=== PATIENT | male | born 1990 | race Caucasian/White ===

== ENCOUNTER 2018-01-07 11:19 | Emergency (ER) | payer OTHER, BC ==
[~2018-01-07] VITALS: Ht 190.5 cm; Wt 90.7 kg
--- NOTE | 2018-01-08 16:33 | EKG ---
[facility] [address] [facility] [place] [address] Signed Marked sinus bradycardia with premature atrial complexes Possible Lateral infarct , age undetermined Abnormal ECG No previous ECGs available Confirmed by JENNA SOLIS DO ([id number]) on 01/08/2018 4:33:01 PM Electronically Signed By: JENNA SOLIS DO 01/08/18 1633 PATIENT NAME: RITA VALLEJO Electrocardiogram DATE OF : 89 PHYSICIAN: JENNA SOLIS DO REPORT #: [id number] REPORT IS CONFIDENTIAL AND NOT TO BE RELEASED WITHOUT AUTHORIZATION
== END 2018-01-07 13:18 | disposition home or self-care (01) ==
LOC: ED 11:19
DX: R55 Syncope and collapse (principal)
CPT/HCPCS: 80053; 85025; 93005; 93010; 99284